=== PATIENT | female | born 1940 | race Caucasian/White ===

== ENCOUNTER 2016-06-07 07:33 | Day surgery (SDC) | payer MEDICARE ==
[~2016-06-07 07:33] MED LIST: IV START KIT ONE; LACTATED RINGERS 1,000 ML ONE
[2016-06-07] MEDS ORDERED: LIDOCAINE 1% 2 ML VIAL ID PRN (07:49)
[2016-06-07] MEDS ORDERED: LACTATED RINGERS 1,000 ML IV SCH (07:49)
[2016-06-07] MEDS ORDERED: ONDANSETRON 4 MG/2ML 2 ML VIAL IV PRN (07:49)
[2016-06-07] MEDS ORDERED: PROPOFOL 40 ML IV ONE (08:57)
--- NOTE | 2016-06-11 14:50 | SURGPATH ---
[facility] [address] [place] [id number] Patient Name: KIZZY GREEN MR#: [id number] : 1940 Gender: F Specimen #: [id number] Collected: 06/07/2016 Received: 06/08/2016 Reported: 06/11/2016 Submitting Phys: DIVYA MARTINEZ Copy To Phys: VICTOR M RABAGO [facility] Clinical History / Pre-Operative Diagnosis: Abdominal pain; heme occult + stool Specimen Source / Surgical Procedure Performed: #1-hepatic flexure polyp; #2-cecal polyp; #3-terminal ileum biopsy; #4-random biopsies Interpretation: 1. COLON, HEPATIC FLEXURE, POLYP, POLYPECTOMY: - CAUTERIZED TUBULAR ADENOMA 2. CECUM, POLYP, POLYPECTOMY: - FOCAL TUBULAR ADENOMA 3. TERMINAL ILEUM, BIOPSY: - NO DIAGNOSTIC ABNORMALITIES 4. COLON, RANDOM BIOPSIES: - NO DIAGNOSTIC ABNORMALITIES Electronically Signed Out Mireya Nunez M.D. Gross Description: #1 The specimen is received in a formalin filled container labeled with the patient's name and "hepatic flexure polyp". A single mandel biopsy is 0.5 cm. Totally embedded in cassette #1. #2 The specimen is received in a formalin filled container labeled with the patient's name and "cecal polyp". A single mandel biopsy is 0.4 cm. Totally embedded in cassette #2. #3 The specimen is received in a formalin filled container labeled with the patient's name and "terminal ileum biopsy". Two mandel biopsies are 0.2 and 0.3 cm. Totally embedded in cassette #3. #4 The specimen is received in a formalin filled container labeled with the patient's name and "random biopsies". Multiple mandel biopsies are 0.2-0.4 cm. Totally embedded in cassette #4. Maryjane Butler Microscopic Description: Part 1: A single fragment of colonic mucosa is seen with crowded glands lined by hyperchromatic nuclei. No high-grade dysplasia or carcinoma is seen. It is quite cauterized. Part 2: A single fragment of colonic mucosa is seen with crowded glands lined by hyperchromatic nuclei. No high-grade dysplasia or carcinoma is seen. It is very focal. Part 3: Sections show terminal ileum with overall intact architecture with a villous to crypt ratio of three-one. No increased intraepithelial lymphocytes, thickened subepithelial collagen band, or active ileitis is seen. Part 4: Sections show colonic mucosa with overall intact architecture with straight crypts extending to the muscularis mucosa. No increased intraepithelial lymphocytes, thickened subepithelial collagen band, or active colitis is seen. No granulomas, dysplasia, or carcinoma is seen. 1: 19999 2: 74606 3: 41045 4: 73890 D12.3 D12.0
== END 2016-06-07 09:30 | disposition home or self-care (01) ==
LOC: SDC 07:33
PROVIDERS: ATTEND Surgery
PROC: 0DBH8ZX Excision of Cecum, Via Natural or Artificial Opening Endoscopic, Diagnostic (ICD-10-PCS; principal; 2016-06-07)
PROC: 0DBB8ZX Excision of Ileum, Via Natural or Artificial Opening Endoscopic, Diagnostic (ICD-10-PCS; 2016-06-07)
PROC: 0DBL8ZX Excision of Transverse Colon, Via Natural or Artificial Opening Endoscopic, Diagnostic (ICD-10-PCS; 2016-06-07)
DX: D12.3 Benign neoplasm of transverse colon (principal); D12.0 Benign neoplasm of cecum; Z80.0 Family history of malignant neoplasm of digestive organs; I48.91 Unspecified atrial fibrillation; E11.9 Type 2 diabetes mellitus without complications; E78.5 Hyperlipidemia, unspecified; I10 Essential (primary) hypertension; E03.9 Hypothyroidism, unspecified; M06.9 Rheumatoid arthritis, unspecified; G47.33 Obstructive sleep apnea (adult) (pediatric); D04.9 Carcinoma in situ of skin, unspecified; M54.30 Sciatica, unspecified side; M19.90 Unspecified osteoarthritis, unspecified site; I50.9 Heart failure, unspecified; J44.9 Chronic obstructive pulmonary disease, unspecified; Z91.040 Latex allergy status
CPT/HCPCS: 45385; 45380; J7120